=== PATIENT | female | born 1990 | race Caucasian/White ===

== ENCOUNTER 2020-11-20 09:50 | Emergency (ER) | payer OTHER ==
[~2020-11-20] VITALS: Ht 157.5 cm; Wt 104.9 kg
[2020-11-20 11:11] LABS: BASO # 0.1 10^3/uL (0.0-0.2); BASO % 0.9 % (0.0-1.0); EOS % 0.5 % (0.0-3.0); HEMATOCRIT 41.8 % (36.0-47.0); HEMOGLOBIN 13.8 g/dl (12.0-15.5); LYMPH % 35.1 % (24.0-44.0); MEAN CORPUSCULAR HEMOGLOBIN 31.1 pg (27.0-33.0); MEAN CORPUSCULAR VOLUME 94.1 fl (80.0-96.0); MONO # 0.4 10^3/uL (0.0-0.8); MONO % 7.6 % (0.0-5.0); NEUTROPHILS # 3.2 10^3/uL (1.5-8.5); NEUTROPHILS % 55.4 % (36.0-66.0); PLATELET COUNT, AUTOMATED 216 10^3/uL (150-450); RED BLOOD COUNT 4.44 10^6/uL (4.00-5.40); WHITE BLOOD COUNT 5.7 10^3/uL (4.0-10.0)
[2020-11-20] MEDS ORDERED: MELA5CAP2 PO (11:18)
[2020-11-20] MEDS ORDERED: IBUPROFEN 800 MG TAB PO ONE (11:30)
--- NOTE | 2020-11-20 12:02 | REP ---
INDICATION: vaginal bleeding, ensure ID in correct position COMPARISON: None. TECHNIQUE: Transabdominal pelvic ultrasound followed by transvaginal examination for better evaluation of the endometrium and adnexa with color Doppler evaluation of the ovaries. FINDINGS: Bladder is unremarkable and under distended Normal anteverted uterus measures 7.8 x 3.3 x 4.0 cm. The endometrial complex appears normal with IUD in central satisfactory position. Bilateral ovaries are normal in appearance and vascularity without evidence for torsion. Right ovary measures 2.4 x 2.0 x 2.8 cm; R I = 0.58. Left ovary measures 3.5 x 1.7 x 1.4 cm; R I = 0.65. No pelvic fluid or adnexal mass lesion IMPRESSION: Normal pelvic ultrasound. IUD in satisfactory position. No torsion. <Electronically signed by Jermaine White > 11/20/20 [id number]
[2020-11-20 12:22] LABS: CHLAMYDIA DNA AMPLIFICATION NEGATIVE (NEGATIVE); GC DNA AMPLIFICATION NEGATIVE (NEGATIVE)
[2020-11-20 13:05] VITALS: BP 125/83
== END 2020-11-20 13:10 | disposition home or self-care (01) ==
LOC: M ED 09:50
DX: N93.9 Abnormal uterine and vaginal bleeding, unspecified (principal); Z87.448 Personal history of other diseases of urinary system; Z87.442 Personal history of urinary calculi; Z97.5 Presence of (intrauterine) contraceptive device

== ENCOUNTER → 2021-04-18 | Outpatient (REF) | payer OTHER ==
[~2021-04-18] MED LIST: MELA5CAP2 PO
== END ==
LOC: M SFHCWAGY 15:09
PROVIDERS: ATTEND Nurse Practitioner Women's Health
DX: Z12.4 Encounter for screening for malignant neoplasm of cervix (principal)
CPT/HCPCS: G0123; G0463

== ENCOUNTER 2021-06-03 09:45 | Emergency (ER) | payer OTHER ==
[~2021-06-03] VITALS: Ht 157.5 cm; Wt 109.4 kg
--- NOTE | 2021-06-03 11:27 | REP ---
INDICATION: left shoulder pain x 3 days, diffuse ttp, no known injury. COMPARISON: None. TECHNIQUE: Three views FINDINGS: AC joint shows no widening of the joint space or elevation of the clavicle in relationship to the acromion clavicle, scapula, humeral head and ribs show no visible or displaced fracture. No abnormal soft tissue calcification, subluxation or dislocation. IMPRESSION: 1. Negative left shoulder series for any acute finding. <Electronically signed by Isidro Gray > 06/03/21 [id number]
--- NOTE | 2021-06-03 11:29 | REP ---
INDICATION: chest pain x 8 hours. COMPARISON: None. TECHNIQUE: Two views FINDINGS: The lung ashraf are well inflated and clear. No infiltrate, effusion, lateral pleural thickening, apical scarring or pneumothorax. Heart, mediastinal and hilar contours are normal. The aorta and airway were unremarkable. There is no free air under the diaphragm. Visualized bones are unremarkable. IMPRESSION: 1. No acute cardiopulmonary change. <Electronically signed by Isidro Gray > 06/03/21 1122
[2021-06-03 11:51] LABS: BASO % 0.5 % (0.0-1.0); EOS # 0.1 10^3/uL (0.0-0.5); EOS % 0.9 % (0.0-3.0); HEMATOCRIT 41.9 % (36.0-47.0); HEMOGLOBIN 13.9 g/dl (12.0-15.5); LYMPH % 35.7 % (24.0-44.0); MEAN CORPUSCULAR HEMOGLOBIN 30.9 pg (27.0-33.0); MEAN CORPUSCULAR HGB CONC 33.2 g/dl (32.0-36.5); MEAN CORPUSCULAR VOLUME 93.1 fl (80.0-96.0); MONO # 0.5 10^3/uL (0.0-0.8); NEUTROPHILS # 3.1 10^3/uL (1.5-8.5); NEUTROPHILS % 54.6 % (36.0-66.0); PLATELET COUNT, AUTOMATED 245 10^3/uL (150-450); WHITE BLOOD COUNT 5.7 10^3/uL (4.0-10.0)
[2021-06-03 12:24] LABS: ALBUMIN 4.2 GM/DL (3.2-5.2); ALT/SGPT 30 U/L (12-78); BILIRUBIN,TOTAL 0.5 MG/DL (0.2-1.0); BLOOD UREA NITROGEN 9 MG/DL (7-18); CALCIUM LEVEL 8.9 MG/DL (8.5-10.1); CARBON DIOXIDE LEVEL 25 MEQ/L (21-32); CHLORIDE LEVEL 108 MEQ/L (98-107); CK-MB VALUE MASS < 1.0 NG/ML (<3.6); CPK CREATINE PHOSPHOKINASE 79 U/L (26-192); CREATININE FOR GFR 0.72 MG/DL (0.55-1.30); GLOMERULAR FILTRATION RATE > 60.0 (>60); GLUCOSE, FASTING 78 MG/DL (70-100); MB/CK RELATIVE INDEX 1.27 (< OR =4); POTASSIUM SERUM 4.1 MEQ/L (3.5-5.1); SODIUM LEVEL 139 MEQ/L (136-145); TOTAL PROTEIN 7.3 GM/DL (6.4-8.2); TROPONIN I < 0.02 NG/ML (< 0.10)
[2021-06-03] MEDS ORDERED: KETOROLAC 30 MG/ML 1ML VIAL IV ONE (13:00)
[2021-06-03] MEDS ORDERED: MOBI4TAB PO (13:04)
[2021-06-03 14:00] VITALS: BP 118/75
--- NOTE | 2021-06-03 20:37 | ECGEPIP ---
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
== END 2021-06-03 14:08 | disposition home or self-care (01) ==
LOC: M ED 09:45
DX: R07.89 Other chest pain (principal); M25.512 Pain in left shoulder
CPT/HCPCS: 71046; 73030; 80053; 82550; 82553; 84484; 85025; 93005; 96374; 99284; J1885

== ENCOUNTER 2021-07-05 21:45 | Emergency (ER) | payer OTHER ==
[~2021-07-05] VITALS: Ht 157.5 cm; Wt 109.4 kg
[~2021-07-05 21:45] MED LIST changes: +MOBI4TAB PO
[2021-07-05 21:46] VITALS: BP 133/81
== END 2021-07-06 02:09 | disposition left against medical advice (07) ==
LOC: M ED 21:45
DX: Z53.29 Procedure and treatment not carried out because of patient's decision for other reasons (principal)